=== PATIENT | male | born 1975 | race Caucasian/White ===

== ENCOUNTER 2023-11-15 11:56 | Outpatient (CLI) | payer OTHER ==
[2023-11-15 12:38] LABS: #Basophils 0.06 10x3/uL (0.0-0.2); #Eosinphils 0.21 10x3/uL (0.0-0.5); #Monocytes 0.81 10x3/uL (0.0-1.1); #Neutrophils 4.56 10x3/uL (1.5-8.4); %Basophils 0.7 % (0.0-2.0); %Eosinophils 2.5 % (0.0-6.0); %Lymphocytes 32.1 % (18.0-47.0); %Monocytes 9.7 % (0.0-10.0); %Neutrophils 54.8 % (40.0-75.0); Hematocrit 44.8 % (38.8-50.0); Hemoglobin 16.3 g/dL (13.5-17.5); Mean Corpuscular HGB CONC 36.4 g/dL (32.0-36.0); Mean Corpuscular Volume 90.7 fl (81.2-95.1); Mean Platelet Volume 10.5 fl (7.4-10.4); Platelet Count 276 10x3/uL (150-450); RBC Distribution Width 11.9 % (11.5-14.5); Red Blood Cell (RBC) Count 4.94 10x6/uL (4.32-5.72); White Blood Cell (WBC) Count 8.3 10x3/uL (3.5-10.5)
[2023-11-15 13:17] LABS: Anion Gap 14 mmol/L (10-20); BUN (Urea Nitrogen) 16 mg/dL (8.9-20.6); Calc. Creatinine Clearance 0 mL/min (70-130); Calcium 9.7 mg/dL (7.8-10.44); Carbon Dioxide 24 mmol/L (22-29); Chloride 105 mmol/L (98-107); Estimated GFR 98; Glucose 91 mg/dL (70-105); Potassium 4.3 mmol/L (3.5-5.1); Sodium 139 mmol/L (136-145)
== END 2023-11-15 11:57 | disposition home or self-care (01) ==
LOC: LABBT 11:56
PROVIDERS: ATTEND Orthopaedic Surgery
DX: Z01.812 Encounter for preprocedural laboratory examination (principal); S83.241A Other tear of medial meniscus, current injury, right knee, initial encounter
CPT/HCPCS: 80048; 85025

== ENCOUNTER 2023-11-21 06:57 | Day surgery (SDC) | payer OTHER ==
[2023-11-15 12:21] VITALS: BMI 27.6
[2023-11-21] MEDS ORDERED: EPINEPHrine 1 MG/ML VIAL ONE (07:37)
[2023-11-21] MEDS ORDERED: Lidocaine 1% PF 5 ML VIAL ONE ×2 (07:38→10:01)
[2023-11-21] MEDS ORDERED: Bupivacaine PF 0.5% 30 ML VIAL ONE (07:38)
[2023-11-21] MEDS ORDERED: Lidocaine 2% PF 5 ML VIAL ONE (07:38)
[2023-11-21] MEDS ORDERED: PROPOFOL 20 ML ONE ×2 (07:41→10:00)
[2023-11-21] MEDS ORDERED: Sodium Chloride 0.9% 100 ML ONE (08:21)
[2023-11-21] MEDS ORDERED: CEFAZOLIN 2 GM VIAL ONE (08:21)
[2023-11-21] MEDS ORDERED: fentaNYL PF 100 MCG/2 ML SYRINGE ONE (10:00)
[2023-11-21] MEDS ORDERED: Ketorolac Tromethamine 30 MG (1 mL) VIAL ONE (10:01)
[2023-11-21] MEDS ORDERED: Ondansetron PF 4 MG/2 ML Vial ONE (10:01)
[2023-11-21] MEDS ORDERED: Midazolam HCl 2 mg/2 ml Vial ONE (10:01)
[2023-11-21] MEDS ORDERED: ePHEDrine Sulfate 50 MG/10 ML VIAL ONE (10:38)
== END 2023-11-21 13:25 | disposition home or self-care (01) ==
LOC: SDC 06:57
PROVIDERS: ATTEND Orthopaedic Surgery
PROC: 0SBC4ZZ Excision of Right Knee Joint, Percutaneous Endoscopic Approach (ICD-10-PCS; principal; 2023-11-21)
PROC: 3E0T3BZ Introduction of Anesthetic Agent into Peripheral Nerves and Plexi, Percutaneous Approach (ICD-10-PCS; principal; 2023-11-21)
DX: S83.241A Other tear of medial meniscus, current injury, right knee, initial encounter (principal); Z91.048 Other nonmedicinal substance allergy status; X58.XXXA Exposure to other specified factors, initial encounter
CPT/HCPCS: J0171; J0665; J1885; J2001; J2250; J2405; J2704; J3490